=== PATIENT | female | born 1980 | race Caucasian/White ===

== ENCOUNTER 2016-07-07 12:19 | Emergency (ER) | payer BC, OTHER ==
[2016-07-07 12:30] VITALS: BP 147/96; PULSE 75; TEMP 99; BMI 26.6
[2016-07-07 13:04] LABS: URINE APPEARANCE CLEAR; URINE BILIRUBIN NEGATIVE (NEGATIVE); URINE COLOR YELLOW; URINE GLUCOSE (UA) NEGATIVE (NEGATIVE); URINE KETONE NEGATIVE (NEGATIVE); URINE NITRITE NEGATIVE (NEGATIVE); URINE PROTEIN NEGATIVE (NEGATIVE); URINE UROBILINOGEN NEGATIVE E.U./dl (0.2-1.0)
--- NOTE | 2016-07-07 13:10 | PDOC ---
History of Present Illness - General Chief Complaint: Back Pain Stated Complaint: BACK PAIN Time Seen by Provider: 07/07/16 12:35 History Source: Patient Exam Limitations: No Limitations - History of Present Illness Initial Comments: 07/07/16 13:04 36 yr female history significant for Multiple Myeloma followed at [facility] on oral chemotherapy. Pt presents with 12 days back pain from top of shoulders to low back. Pain worse with lying down, standing up .Pt had FLU virus 3 weeks ago . Pt denies fever m chills no urinary complaints, no abd pain however the pain makes her nauseas. Pt denies trauma, has been kick boxing 5 days a week prior to the pain. Occurred: reports: last week Severity: reports: moderate Pain Location: reports: back Method of Injury: Yes: unknown Past History - Past Medical History Allergies/Adverse Reactions: Allergies Allergy/AdvReac Type Severity Reaction Status Date / Time Sulfa (Sulfonamide AdvReac Verified 07/07/16 12:30 Antibiotics) Home Medications: Ambulatory Orders Amlodipine Besylate [Norvasc -] 5 mg PO HS 10/07/13 Aspirin [ASA -] 81 mg PO DAILY 10/07/13 Lenalidomide [Revlimid] 15 mg PO HS 10/07/13 Ranitidine HCl [Zantac] 150 mg PO DAILY 06/09/16 Ciprofloxacin [Cipro (Restricted To Id)] 250 mg PO BID #6 tablet 07/07/16 Cyclobenzaprine HCl [Flexeril 10 mg] 5 mg PO TID PRN #21 tablet 07/07/16 Cancer: Yes (MULTIPLE MYLOMA) Cardiac Disorders: No CVA: No CHF: No Dementia: No Diabetes: No GI Disorders: Yes (IBS) Disorders: No HTN: Yes Hypercholesterolemia: No Liver Disease: No Seizures: No Thyroid Disease: No - Surgical History Abdominal Surgery: No Appendectomy: No Cardiac Surgery: No Cholecystectomy: No Lung Surgery: No Neurologic Surgery: No Orthopedic Surgery: No - Immunization History Immunization Up to Date: Yes - Psycho/Social/Smoking Cessation Hx Anxiety: No Suicidal Ideation: No Smoking Status: No Smoking History: Never smoked Have you smoked in the past 12 months: No Number of Cigarettes Smoked Daily: 0 Hx Alcohol Use: No Drug/Substance Use Hx: No Substance Use Type: None Trauma Specific PMHX - Complaint Specific PMHX Arthritis: No Back Injury: No Neck Injury: No Hx Sacro Iliac Joint Dysfunction: No Review of Systems - Review of Systems Able to Perform ROS?: Yes Is the patient limited Mauritian proficient: No Constitutional: No: Symptoms Reported HEENTM: No: Symptoms Reported Respiratory: No: Symptoms reported Cardiac (ROS): No: Symptoms Reported ABD/GI: No: Symptoms Reported : No: Symptoms Reported Musculoskeletal: Yes: Symptoms Reported, Back Pain Integumentary: No: Symptoms Reported Neurological: No: Symptoms reported *Physical Exam - Vital Signs Last Vital Signs Temp Pulse Resp BP Pulse Ox 99.0 F 75 20 147/96 99 07/07/16 12:27 07/07/16 12:27 07/07/16 12:27 07/07/16 12:27 07/07/16 12:27 - Physical Exam General Appearance: Yes: Nourished, Appropriately Dressed HEENT: positive: EOMI, KELSEY, Normal ENT Inspection, TMs Normal, Pharynx Normal Neck: positive: Supple. 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 Agrees with plan to get imaging studies. will send basic labd, toradol for pain muscle relaxants 07/07/16 14:49 *DC/Admit/Observation/Transfer Diagnosis at time of Disposition: Back pain Qualifiers: Back pain location: thoracic back pain Chronicity: acute Back pain laterality: unspecified Qualified Code(s): M54.6 - Pain in thoracic spine - Discharge Dispostion Disposition: HOME Condition at time of disposition: Good - Prescriptions Prescriptions: Ciprofloxacin [Cipro (Restricted To Id)] 250 mg PO BID #6 tablet Cyclobenzaprine HCl [Flexeril 10 mg] 5 mg PO TID PRN #21 tablet PRN Reason: Muscle Spasms - Patient Instructions Additional Instructions: take the muscle relaxant as prescribed DO NOT DRIVE, DRINK ALCOHOL OR OPERATE MACHINERY take tylenol extra strength 975mg every 6hrs for pain as needed take the antibiotic for 3 days follow with your doctor this week the xrays are negative, the lab work is within normal limits except for some bacteria in your urine Return if any worsening symptoms
[2016-07-07 13:14] LABS: URINE BLOOD 1+ (NEGATIVE); URINE LEUK ESTERASE 2+ (NEGATIVE)
[2016-07-07 13:16] LABS: URINE MUCUS RARE; URINE RBC 5 /hpf (0-3); URINE WBC 25 /hpf (3-5)
[2016-07-07 13:21] LABS: BASOPHIL 0.7 % (0-2.0); EOSINOPHIL 1.4 % (0-4.5); MCH 30.8 pg (25.7-33.7); MCHC 33.8 g/dl (32.0-36.0); MEAN PLT VOLUME 7.5 fl (7.5-11.1); NEUTROPHILS 75.5 % (42.8-82.8); PLATELET COUNT 281 K/MM3 (134-434); RDW 14.6 % (11.6-15.6)
[2016-07-07 13:51] LABS: ALBUMIN 3.9 g/dl (3.4-5.0); ALK PHOS 120 U/L (45-117); ANION GAP 11 (8-16); CALCIUM 9.1 mg/dL (8.5-10.1); CO2 28 mmol/L (21-32); CREATININE 0.9 mg/dL (0.55-1.02); GLUCOSE,RANDOM 104 mg/dL (74-106); SGOT/AST 43 U/L (15-37); SGPT/ALT 69 U/L (12-78); TOT PROT 7.9 g/dl (6.4-8.2)
[2016-07-07] MEDS ORDERED: KETOROLAC TROMETHAMINE 60 MG/2 ML VIAL IM ONE (14:02)
[2016-07-07] MEDS ORDERED: KETOROLAC TROMETHAMINE 60 MG/2 ML VIAL ONE (14:05)
== END 2016-07-07 14:59 | disposition home or self-care (01) ==
LOC: JERFT 12:19
PROC: 3E0333Z Introduction of Anti-inflammatory into Peripheral Vein, Percutaneous Approach (ICD-10-PCS; principal; 2016-07-07)
DX: M54.6 Pain in thoracic spine (principal); I10 Essential (primary) hypertension; C90.00 Multiple myeloma not having achieved remission; K58.9 Irritable bowel syndrome, unspecified
CPT/HCPCS: 36415; 72050-TC; 72070-TC; 72100-TC; 80053; 81003; 81015; 84703; 85025; 87086; 99281-25

== ENCOUNTER 2018-09-14 16:23 | Emergency (ER) | payer BC | END 2018-09-14 19:16 | disposition home or self-care (01) | LOC: FER 16:23 ==

== ENCOUNTER 2021-03-18 12:38 | Emergency (ER) | payer BC, OTHER ==
[2021-03-18 12:55] VITALS: BP 130/78; PULSE 66; TEMP 98.9; BMI 25.7
== END 2021-03-18 14:15 | disposition home or self-care (01) ==
LOC: FER 12:38
DX: J06.9 Acute upper respiratory infection, unspecified (principal)
CPT/HCPCS: 71045-TC-FY; 87804; 87807; 99284-25; C9803; U0003; U0005

== ENCOUNTER 2024-05-16 12:53 | Emergency (ER) | payer BC, OTHER ==
[2024-05-16 13:09] VITALS: RESP 18; TEMP 99; BMI 29.2
[2024-05-16] MEDS: SODIUM CHLORIDE 0.9% 500 ML INFUS.BAG IV ONE (13:18)
[2024-05-16] MEDS ORDERED: FAMOTIDINE 20 MG/50 ML IVPB 20 MG/50 ML MG IVPB ONE (13:20)
[2024-05-16] MEDS ORDERED: ONDANSETRON 4 MG/2 ML VIAL ONE (13:20)
[2024-05-16] MEDS ORDERED: ACETAMINOPHEN INJECTION 100 ML ONE (13:20)
[2024-05-16 13:24] LABS: HEMATOCRIT 47.8 % (32.4-45.2); MCH 31.2 pg (25.7-33.7); MCHC 35.6 g/dl (32.0-36.0); MEAN CELL VOLUME 87.5 fl (80-96); MEAN PLT VOLUME 7.4 fl (7.5-11.1); PLATELET COUNT 287.6 10^3/uL (134-434); RBC 5.46 10^6/uL (3.60-5.2); RDW 13.1 % (11.6-15.6); WHITE BLOOD COUNT 4.8 10^3/uL (4.0-10.8)
[2024-05-16] MEDS: ONDANSETRON 4 MG/2 ML VIAL IVPUSH ONE (13:29)
[2024-05-16] MEDS: ACETAMINOPHEN 1000 MG/100 ML BAG IVPB ONE (13:29)
[2024-05-16] MEDS: FAMOTIDINE 20 MG/50 ML IVPB 20 MG/50 ML MG IVPB ONE (13:29)
[2024-05-16 13:52] LABS: ALBUMIN 4.4 g/dl (3.4-5.0); BILIRUBIN,TOTAL 0.7 mg/dl (0.2-1); CREATININE 0.9 mg/dl (0.6-1.3); MAGNESIUM 2.2 mg/dL (1.8-2.4); POTASSIUM 3.7 mmol/L (3.5-5.1); TOT PROT 7.8 g/dl (6.4-8.2)
[2024-05-16 14:13] VITALS: BP 146/79; PULSE 71
[2024-05-16 14:43] LABS: PLATELET ESTIMATE ADEQUATE
== END 2024-05-16 14:43 | disposition home or self-care (01) ==
LOC: FER 12:53
PROC: 3E033GC Introduction of Other Therapeutic Substance into Peripheral Vein, Percutaneous Approach (ICD-10-PCS; principal; 2024-05-16)
PROC: 3E033GC Introduction of Other Therapeutic Substance into Peripheral Vein, Percutaneous Approach (ICD-10-PCS; 2024-05-16)
PROC: 3E033NZ Introduction of Analgesics, Hypnotics, Sedatives into Peripheral Vein, Percutaneous Approach (ICD-10-PCS; 2024-05-16)
DX: R11.2 Nausea with vomiting, unspecified (principal); R19.7 Diarrhea, unspecified; R53.83 Other fatigue; R53.1 Weakness; R00.0 Tachycardia, unspecified; B34.9 Viral infection, unspecified; Z20.822 Contact with and (suspected) exposure to COVID-19
CPT/HCPCS: 0241U-QW; 36415; 80053; 83735; 84703; 85027; 99284-25; J0131